=== PATIENT | female | born 1960 | race Caucasian/White ===

== ENCOUNTER 2021-07-19 09:48 | Day surgery (SDC) | payer OTHER ==
[2021-07-17 15:15] VITALS: BMI 23.5
[~2021-07-19 09:48] MED LIST: LACTATED RINGERS 1,000 ML IV SCH
[2021-07-19 10:22] VITALS: TEMP 97.5
[2021-07-19] MEDS ORDERED: LACTATED RINGERS 1,000 ML IV ONE (10:22)
[2021-07-19] MEDS ORDERED: LIDOCAINE 1% INJ 10MG/ML (20 ML MDV) ONE (11:29)
[2021-07-19] MEDS ORDERED: PROPOFOL 10 MG/ML 20 ML VIAL IV ONE (11:29)
--- NOTE | 2021-07-19 11:56 | P.PCN ---
Date of Procedure: 07/19/21 Procedure(s) Performed: Brief history: Patient is a pleasant 61-year-old white female scheduled for an elective upper endoscopy as well as colonoscopy as a part of evaluation of epigastric pain, nausea and prior history of colon Procedure performed: Esophagogastroduodenoscopy with biopsy Colonoscopy and polypectomy Preoperative diagnosis: Epigastric pain and nausea History of colon polyps Anesthesia: [facility] [place] Procedure: After informed consent was obtained from the patient was brought into the endoscopy unit and IV sedation was administered by anesthesia under continuous monitoring. Initially upper endoscopy was done. The Olympus GF 160 video endoscope was inserted inserted into the mouth and esophagus intubated without any difficulty and was gradually advanced into the stomach and duodenum and carefully examined. The bulb and second part of the duodenum appeared normal. Biopsies were done from the duodenum to rule out celiac disease. The scope was then withdrawn into the stomach adequately insufflated with air and upon careful examination the antrum had mild linear areas of erythema with was biopsied. The body, cardia and fundus appeared normal. The scope was then withdrawn into the esophagus. small hiatal hernia noted. The GE junction was located at 35 cm to the incisors. It appeared regular with no erythema erosions or ulcerations. Rest of the esophagus appeared normal. biopsies were done from the distal esophagus. Patient tolerated the procedure well. At this time the patient continued to remain sedation. Initial digital rectal examination was normal. Olympus CF 160 video colonoscope was then inserted into the rectum and gradually advanced to the cecum without any difficulty. Careful examination was performed as the scope was gradually being withdrawn. The prep was fair. The cecum, ascending colon, normal. In the Ascending colon there was a 7 mm polyp removed by snare polypectomy. Rest of the transverse colon, descending colon, sigmoid colon and rectum appeared normal. Scattered left- sided diverticulosis seen. Retroflexion was performed in the rectum and no lesions were noted. Patient tolerated the procedure well. Impression: 1. Upper endoscopy revealed mild antral gastritis and small hiatal hernia. 2. Colonoscopy revealed a 7 mm ascending colon polyp status post polypectomy and scattered sigmoid diverticulosis Recommendations: Findings of this examination were discussed with the patient as well as her family. She was advised to follow with the biopsy results. If the biopsy result adenoma she can have a Repeat colonoscopy in 5 years. Start on Prilosec 20 mg daily and follow antireflux measures
[2021-07-19 13:00] VITALS: BP 105/66; PULSE 74; RESP 16
== END 2021-07-19 12:50 | disposition home or self-care (01) ==
LOC: ORWHC2ENDO 09:48
PROVIDERS: ATTEND Internal Medicine Gastroenterology
DX: K29.70 Gastritis, unspecified, without bleeding (principal); K44.9 Diaphragmatic hernia without obstruction or gangrene; K57.30 Diverticulosis of large intestine without perforation or abscess without bleeding; Z86.010 Personal history of colon polyps
CPT/HCPCS: 45385; 43239; 88305; 88342; J2001; J2704

== ENCOUNTER 2023-03-06 12:34 | Day surgery (SDC) | payer MEDICARE, OTHER ==
[2023-03-04 14:32] VITALS: BMI 24.3
[2023-03-06 13:59] VITALS: RESP 16; TEMP 97.7
[2023-03-06] MEDS: LACTATED RINGERS 1,000 ML IV SCH ×2 (13:59→14:44)
[2023-03-06] MEDS ORDERED: PROPOFOL 10 MG/ML 20 ML VIAL IV ONE (14:46)
[2023-03-06] MEDS ORDERED: LIDOCAINE 1% INJ 10MG/ML (20 ML MDV) ONE (14:46)
--- NOTE | 2023-03-06 14:56 | P.PCN ---
Date of Procedure: 03/06/23 Procedure(s) Performed: BRIEF HISTORY: Patient is a 63-year-old, pleasant, white female scheduled for an upper endoscopy for evaluation of intermittent dysphagia to solids for the last 6 months duration.. She has long-standing history of GERD and has been on Protonix 40 mg daily. PROCEDURE PERFORMED: Esophagogastroduodenoscopy with biopsy and dilation. PREOPERATIVE DIAGNOSIS: History of GERD and intermittent dysphagia to solids for the last 6 months duration. IV sedation per anesthesia. PROCEDURE: After informed consent was obtained, the patient was brought into the endoscopy unit. IV sedation was administered by Anesthesia under continuous monitoring. Initially the Olympus GIF-140 video endoscope was inserted into the mouth. Esophagus intubated without any difficulty. It was gradually advanced into the stomach and duodenum and carefully examined. The bulb and the second part of the duodenum appeared normal. The scope at this time was withdrawn to the stomach, adequately insufflated with air, and upon careful examination, mucosa of the antrum, body, cardia and the fundus appeared normal. The scope was then withdrawn into the esophagus. Small hiatal hernia noted. The GE junction was located at 36 cm from the incisors. There was an early distal esophagus which are noted which was dilated with 18 and 19 mm TTS balloon for 30 seconds. Following dilation there was some mucosal tear with oozing identified and hence further dilation was not performed. There were linear erosions noted in the distal esophagus consistent with LA grade B reflux esophagitis. The rest of the esophagus appeared normal. The patient tolerated the procedure well. IMPRESSION: 1. Distal esophageal early stricture status post balloon dilation using 18 and 19 mm TTS balloon as described above. 2. Small hiatal hernia 3. LA grade B reflux esophagitis. RECOMMENDATIONS: The findings of this examination were discussed with the patient as well as her family. She was advised to follow with the biopsy results. Remain on clear liquids for 2 hours. Increase Protonix to 40 mg twice daily for 2 months. Follow up in office in 2 months..
[2023-03-06 15:23] VITALS: BP 139/81; PULSE 61
== END 2023-03-06 15:34 | disposition home or self-care (01) ==
LOC: ORWHC2ENDO 12:34
PROVIDERS: ATTEND Internal Medicine Gastroenterology
DX: K21.00 Gastro-esophageal reflux disease with esophagitis, without bleeding (principal); K44.9 Diaphragmatic hernia without obstruction or gangrene; G25.81 Restless legs syndrome; Z87.891 Personal history of nicotine dependence; Z79.899 Other long term (current) drug therapy; Z88.5 Allergy status to narcotic agent
CPT/HCPCS: 88305; 43239; 43249; J2001; J2704; C1726

== ENCOUNTER → 2024-09-15 | Outpatient (CLI) | payer MEDICARE ==
[2024-09-15 11:36] LABS: African American GFR (CKD) 78 (>60 ml/min/1.73 sqM); Blood Urea Nitrogen 13 mg/dL (7-17); Non-African American GFR(CKD) 68 (>60 ml/min/1.73 sqM)
--- NOTE | 2024-09-15 12:11 | CT ---
EXAMINATION TYPE: CT angio chest CT DLP: 278 mGycm, Automated exposure control for dose reduction was used. DATE OF EXAM: 09/15/2024 12:01 PM COMPARISON: None CLINICAL INDICATION:Female, 64 years old with history of R06.09 DYSPNEA; Dyspnea. TECHNIQUE/CONTRAST: CTA scan of the thorax is performed with IV Contrast, patient injected with 52ml mL of Isovue 370, pu lmonary embolism protocol. MIP images are created and reviewed. FINDINGS: Pulmonary Artery: There is no evidence for a filling defect within the pulmonary vasculature to sugge st acute pulmonary embolism. The pulmonary artery is of normal size. Lungs/Pleura: No pleural effusion or pneumothorax. Bilateral lower lobe patchy subsegmental groundgla ss opacities. Left lower lobe 4.5 mm pulmonary nodule. Mild centrilobular emphysematous changes most pronounced within the bilateral upper lobes and right greater the left. Linear atelectasis within the right middle lobe. Airway: Large airways are patent. Heart: Cardiomegaly is demonstrated.Trace anterior inferior pericardial effusion. No significant drew nary artery calcifications. Vasculature: No evidence of aortic aneurysm. Mild atherosclerotic calcification of the aorta and its branches. Mediastinum: Enlarged right low paratracheal lymph node measuring up to 1.8 cm. Prominent left AP win sherry lymph node measuring up to 0.7 cm short axis. Musculoskeletal: No acute osseous abnormalities. Anterior cervical fusion hardware. Moderate multilev el degenerative disc disease of the thoracic spine. Soft Tissues: Unremarkable. Lower neck: Subcentimeter right thyroid lobe 9 mm hypodense nodule. This can be further evaluated wit h ultrasound as clinically indicated. Upper Abdomen: Gallbladder is surgically absent. Moderate to large size hiatal hernia. IMPRESSION: 1. No evidence of pulmonary embolism. 2. Bilateral lower lobe subsegmental ground glass opacities favored to represent atelectasis versus l ess likely infiltrates. 3. Nonspecific enlarged right paratracheal lymph node with mildly prominent AP window lymph node. May be reactive. 4. Left lower lobe 4.5 mm pulmonary nodule. According to Fleischner criteria, in a low-risk patient n o follow-up is recommended. In a high-risk patient consider optional CT chest in 12 months. 5. Moderate to large size hiatal hernia. [facility], , 09/15/2024 12:09 PM
== END | disposition home or self-care (01) ==
LOC: RADCTMAIN 10:58
PROVIDERS: ATTEND Internal Medicine
DX: R91.8 Other nonspecific abnormal finding of lung field (principal); R59.0 Localized enlarged lymph nodes; R06.09 Other forms of dyspnea; K44.9 Diaphragmatic hernia without obstruction or gangrene; R91.1 Solitary pulmonary nodule
CPT/HCPCS: 82565; 84520; 71275; 36415; Q9967